=== PATIENT | female | born 1990 | race Caucasian/White ===

== ENCOUNTER → 2017-07-24 | Emergency (ER) | payer OTHER ==
[~2017-07-24] VITALS: Ht 167.6 cm; Wt 78.9 kg
[~2017-07-24] MED LIST: TRAMADOL HCL50 MG PO
== END | disposition left against medical advice (07) ==
LOC: ER 20:36
DX: Z53.20 Procedure and treatment not carried out because of patient's decision for unspecified reasons (principal)